=== PATIENT | female | born 1980 | race Caucasian/White ===

== ENCOUNTER 2016-09-23 22:49 | Emergency (ER) | payer OTHER ==
--- NOTE | 2016-09-23 23:09 | ERPHSYRPT ---
- History of Present Illness Time Seen by Provider: 09/23/16 23:04 Source: patient Exam Limitations: no limitations Physician History: pt ran her right hand through a glass window sustaining laceration deep to bone on dorsal and ulnar aspects and has deep muscle involvement with weakness of extensor mechanism. requiring continued pressure to maintain hemostasis; neurovascular appears intact distally; Occurred: just prior to arrival Method of Injury: direct blow Quality: constant Severity of Pain-Max: moderate Severity of Pain-Current: moderate Extremities Pain Location: forearm: right Modifying Factors: Improves With: immobilization, movement Associated Symptoms: none Allergies/Adverse Reactions: No Known Drug Allergies Allergy (Verified 09/23/16 23:55) Home Medications: Alprazolam 1 mg [Xanax 1 mg] 1 mg PO TID 03/10/13 [History] Amitriptyline HCl 25 mg [Elavil 25 mg] 50 mg PO HS 03/10/13 [History] Diltiazem HCl 300 mg [Cardizem CD 300 MG] 300 mg PO DAILY 03/10/13 [ History] Omeprazole 20 MG [Prilosec 20 mg] 20 mg PO DAILY 03/10/13 [History] Sertraline HCl 100 mg [Zoloft 100 MG] 100 mg PO BID 03/10/13 [History] Hx Tetanus, Diphtheria Vaccination/Date Given: (UNSURE) - Review of Systems Constitutional: No Fever, No Chills Eyes: No Symptoms Ears, Nose, & Throat: No Symptoms Respiratory: No Cough, No Dyspnea Cardiac: No Chest Pain, No Edema, No Syncope Abdominal/Gastrointestinal: No Abdominal Pain, No Nausea, No Vomiting, No Diarrhea Genitourinary Symptoms: No Dysuria Musculoskeletal: No Back Pain, No Neck Pain Skin: No Rash Neurological: No Dizziness, No Focal Weakness, No Sensory Changes Psychological: No Symptoms Endocrine: No Symptoms All Other Systems: Reviewed and Negative - Past Medical History Pertinent Past Medical History: Yes Cardiac History: Hypertension Musculoskeletal History: Degenerative Disk Disease Psycho-Social History: Anxiety, Depression - Past Surgical History Past Surgical History: Yes Neuro Surgical History: No Pertinent History Cardiac: No Pertinent History Respiratory: No Pertinent History Gastrointestinal: Cholecystectomy Genitourinary: No Pertinent History Musculoskeletal: No Pertinent History Female Surgical History: No Pertinent History Other Surgical History: tonsils - Social History Smoking Status: Current every day smoker Exposure to second hand smoke: No Alcohol Use: Socially Drug Use: none Patient Lives Alone: No Significant Family History: no pertinent family hx - Female History Hx Now: No - Nursing Vital Signs Nursing Vital Signs: Initial Vital Signs Temperature 98.6 F Temperature Source Oral Pulse Rate 123 Respiratory Rate 22 Blood Pressure [Left Arm] 136/88 Pain Intensity 2 - Physical Exam General Appearance: mild distress, alert Eyes, Ears, Nose, Throat Exam: moist mucous membranes Neck Exam: non-tender, supple Cardiovascular/Respiratory Exam: chest non-tender, normal breath sounds, regular rate/rhythm, no respiratory distress Abdominal Exam: non-tender, No guarding Back Exam: normal inspection, No vertebral tenderness Shoulder Exam: normal inspection, non-tender, no evidence of injury, normal ROM Elbow/Forearm Exam: deformity, pain, soft tissue tenderness Wrist Exam: normal inspection, non-tender, no evidence of injury, normal ROM Hand Exam: normal inspection, non-tender, no evidence of injury, normal ROM DTR - Upper Extremity Exam: bicep (R): 2+, bicep (L): 2+, tricep (R): 2+, tricep (L): 2+ Neuro/Tendon Exam: normal sensation, normal motor functions, tendon function deficit Mental Status Exam: alert, oriented x 3, cooperative Skin Exam: normal color, warm, dry SpO2 Interpretation: normal Oxygen Delivery: Room Air - Course Nursing assessment & vital signs reviewed: Yes Ordered Tests: Active Orders 24 hr Category Date Time Status Splint STAT Care 09/23/16 23:10 Active Wound Care STAT Care 09/23/16 23:10 Active FOREARM Stat Exams 09/23/16 23:14 Taken Medication Summary Generic Name Dose Route Start Last Admin Trade Name Freq PRN Reason Stop Dose Admin Cefazolin Sodium/Dextrose 50 mls @ 100 mls/hr 09/23/16 23:10 Kefzol 1 Gm/50 Ml Premix IV 09/23/16 23:39 STAT ONE Sodium Chloride 1,000 mls @ 100 mls/hr 09/23/16 23:15 09/24/16 00:12 Sodium Chloride 0.9% 1000 Ml IV 10/23/16 23:14 999 mls/hr .Q10H WILLIE Infusion Sodium Chloride 1,000 mls @ 100 mls/hr 09/24/16 00:15 07/02/17 00:14 Sodium Chloride 0.9% 1000 Ml IV 10/24/16 00:14 100 mls/hr .Q10H WILLIE Administration Discontinued Medications Generic Name Dose Route Start Last Admin Trade Name Koki PRN Reason Stop Dose Admin Diphenhydramine HCl 25 mg 09/23/16 23:12 09/23/16 23:19 Benadryl 50 Mg/Ml IV 09/23/16 23:13 25 mg STAT ONE Administration Diphenhydramine HCl Confirm 09/23/16 23:15 Benadryl 50 Mg/Ml Administered 09/23/16 23:16 Dose 50 mg .ROUTE .STK-MED ONE Diphtheria/Tetanus/Acell Pertussis 0.5 ml 09/23/16 23:10 09/23/16 23:19 Adacel Vial IM 09/23/16 23:11 0.5 ml .ONCE ONE Administration Diphtheria/Tetanus/Acell Pertussis Confirm 09/23/16 23:19 Adacel Vial Administered 09/23/16 23:20 Dose 0.5 ml IM .STK-MED ONE Morphine Sulfate 4 mg 09/23/16 23:12 09/23/16 23:20 Morphine Sulfate 4 Mg Inj IV 09/23/16 23:13 4 mg STAT ONE Administration Morphine Sulfate Confirm 09/23/16 23:16 Morphine Sulfate 4 Mg Inj Administered 09/23/16 23:17 Dose 4 mg .ROUTE .STK-MED ONE Ondansetron HCl 4 mg 09/23/16 23:12 09/23/16 23:22 Zofran 4 Mg/2 Ml Vial IV 09/23/16 23:13 4 mg STAT ONE Administration Ondansetron HCl Confirm 09/23/16 23:21 Zofran 4 Mg/2 Ml Vial Administered 09/23/16 23:22 Dose 4 mg .ROUTE .STK-MED ONE - Progress Progress: improved, re-examined Progress Note: 09/24/16 00:[address] Pacheco and Dr Sheriff at [facility] trauma and they accept pt in transfer for definitive Tx; Discussed with Dr.: Other (Dr. Pacheco) Will see patient in: ED Counseled pt/family regarding: diagnosis, need for follow-up, rad results - Departure Time of Disposition: 00:24 Departure Disposition: Transfer Clinical Impression: Laceration of right forearm with tendon involvement Condition: Good Critical Care Time: No
[2016-09-23] MEDS ORDERED: Adacel Vial IM ONE ×2 (23:10→23:19)
[2016-09-23] MEDS ORDERED: KEFZOL 1 GM/50 ML PREMIX** 1 GM/50 ML IVPB IV ONE (23:10)
[2016-09-23] MEDS ORDERED: BENADRYL 50 MG/ML IV ONE (23:12)
[2016-09-23] MEDS ORDERED: MORPHINE SULFATE 4 MG INJ IV ONE (23:12)
[2016-09-23] MEDS ORDERED: Zofran 4 MG/2 ML VIAL IV ONE (23:12)
[2016-09-23] MEDS ORDERED: BENADRYL 50 MG/ML ONE (23:15)
[2016-09-23] MEDS ORDERED: Sodium Chloride 0.9% 1000 ML 1,000 ML IV SCH (23:15)
[2016-09-23] MEDS ORDERED: MORPHINE SULFATE 4 MG INJ ONE (23:16)
[2016-09-23] MEDS ORDERED: Sodium Chloride 0.9% 1000 ML 1,000 ML ONE (23:16)
[2016-09-23] MEDS ORDERED: Zofran 4 MG/2 ML VIAL ONE (23:21)
[2016-09-24] MEDS ORDERED: Sodium Chloride 0.9% 1000 ML 1,000 ML ONE (00:06)
[2016-09-24] MEDS: Sodium Chloride 0.9% 1000 ML 1,000 ML IV SCH ×2 (00:14→00:26)
[2016-09-24 00:24] VITALS: BP 129/70; PULSE 76; O2SAT 100
--- NOTE | 2016-09-24 08:30 | XRAY ---
Indication: Laceration. Comparison: None 2 views of the right forearm demonstrates distal soft tissue laceration, ulnar aspect. No other bony, articular, or soft tissue abnormalities.
== END 2016-09-24 00:53 | disposition short-term general hospital (02) ==
LOC: ED 22:49
DX: S51.811A Laceration without foreign body of right forearm, initial encounter (principal); S56.921A Laceration of unspecified muscles, fascia and tendons at forearm level, right arm, initial encounter
CPT/HCPCS: 73090; 90471; 90715; 96360; 96374; 96375; 99285; J0690; J1200; J2270; J2405